=== PATIENT | male | born 1980 | race Caucasian/White ===

== ENCOUNTER → 2017-04-09 15:05 | Outpatient (CLI) | payer MEDICAID | END | disposition home or self-care (01) | LOC: D.RAD 15:05 | DX: R05 Cough (principal) ==

== ENCOUNTER → 2017-05-27 08:26 | Outpatient (CLI) | payer MEDICAID ==
[2017-05-27 09:05] LABS: ALBUMIN 2.8 g/dL (3.4-5.0); BILIRUBIN - DIRECT 0.17 mg/dL (0.00-0.30); BILIRUBIN - INDIRECT 0.36 mg/dL (0.00-1.00); BILIRUBIN - TOTAL 0.53 mg/dL (0.2-1.3)
== END | disposition home or self-care (01) ==
LOC: D.US 08:26
PROVIDERS: Internal Medicine Gastroenterology
DX: F10.21 Alcohol dependence, in remission (principal); K59.00 Constipation, unspecified; R19.4 Change in bowel habit

== ENCOUNTER 2018-09-30 11:56 | Emergency (ER) | payer OTHER ==
[~2018-09-30] VITALS: Ht 177.8 cm; Wt 106.8 kg
[2018-09-30 12:51] VITALS: Ht 177.8 cm; Wt 106.8 kg
[2018-09-30] MEDS ORDERED: PROZAC40 MG PO (12:52)
[2018-09-30] MEDS ORDERED: [UNRECOGNIZED DRUG - REMARK] (12:52)
[2018-09-30] MEDS ORDERED: LISINOPRIL10 MG (12:52)
[2018-09-30] MEDS ORDERED: ABILIFY10 MG PO (12:53)
[2018-09-30] MEDS ORDERED: [UNRECOGNIZED DRUG - OTHER] (12:53)
[2018-09-30 13:26] LABS: BASOPHILS 0.4 % (0-2); EOSINOPHILS 1.5 % (0-7); HEMATOCRIT 44.1 % (42.0-54.0); HEMOGLOBIN 16.4 g/dL (13.5-17.5); IMMATURE GRANULOCYTES 0.5 % (0-5); MCH 33.7 pg (26.0-34.0); MCHC 37.2 g/dL (31.0-37.0); MCV 90.6 fL (80.0-100.0); MEAN PLATELET VOLUME 9.8 fL (7.4-10.4); MONOCYTES 6.2 % (2-11); NEUTROPHILS 74.4 % (40-80); PLATELET COUNT 247 10x3/uL (130-400); RBC 4.87 10x6/uL (4.20-6.10); RDW 14.2 % (11.5-14.5); WBC 13.5 10x3/uL (4.8-10.8)
[2018-09-30 13:28] LABS: ALBUMIN 2.8 g/dL (3.4-5.0); BILIRUBIN - TOTAL 0.7 mg/dL (0.2-1.3); CALCIUM 8.8 mg/dL (8.5-10.1); CARBON DIOXIDE 36.1 mmol/L (21.0-32.0); CREATININE - SERUM 1.2 mg/dL (0.6-1.3); MAGNESIUM - SERUM 2.1 mg/dL (1.8-2.4); PHOSPHOROUS 2.6 mg/dL (2.5-4.9); PROTEIN - SERUM 6.9 g/dL (6.4-8.2)
[2018-09-30 13:29] LABS: ANION GAP 8.4 mmol/L (8-16)
[2018-09-30 13:42] LABS: POTASSIUM - SERUM 2.5 mmol/L (3.5-5.1)
[2018-09-30 17:24] VITALS: BP 122/89
== END 2018-09-30 17:42 | disposition left against medical advice (07) ==
LOC: D.ER 11:56
PROVIDERS: Family Medicine
DX: E87.6 Hypokalemia (principal); F17.210 Nicotine dependence, cigarettes, uncomplicated

== ENCOUNTER → 2019-01-14 07:42 | Outpatient (CLI) | payer OTHER ==
[2018-09-30 12:51] VITALS: BMI 33.7
[~2019-01-14 07:42] MED LIST: ABILIFY10 MG PO; LISINOPRIL10 MG; PROZAC40 MG PO; [UNRECOGNIZED DRUG - OTHER]; [UNRECOGNIZED DRUG - REMARK]
== END | disposition home or self-care (01) ==
LOC: D.US 01-13 08:30
PROVIDERS: ATTEND Nurse Practitioner
DX: R94.5 Abnormal results of liver function studies (principal); R16.0 Hepatomegaly, not elsewhere classified; K76.0 Fatty (change of) liver, not elsewhere classified